=== PATIENT | female | born 1970 | race Caucasian/White ===

== ENCOUNTER 2016-07-28 10:27 | Emergency (ER) | payer MEDICAID, OTHER ==
[~2016-07-28] VITALS: Ht 160 cm; Wt 78.9 kg
[~2016-07-28 10:27] MED LIST: ACET500T98 PO; IBUP200C PO; IBUP800T25 PO; ONDA4TAB35 PO; OSLT75C PO
[2016-07-28 10:31] VITALS: Ht 160 cm; Wt 78.9 kg
[2016-07-28] MEDS ORDERED: TRAM50TA2 PO (11:55)
[2016-07-28] MEDS ORDERED: IBUP-1542 PO (11:55)
[2016-07-28] MEDS ORDERED: HYDROCODONE/APAP (5/325) TAB PO ONE (12:00)
--- NOTE | 2016-07-28 12:05 | ERD ---
ER Documentation Chief Complaint Date/Time DATE: 07/28/16 TIME: 11:58 Chief Complaint right breast pain with clear disc ahrge x 1 week HPI This 45-year-old female who presents the emergency department today complaining of right breast pain that radiates around to her back. She states she also has pain that goes across her chest and her left arm. States that she feels her arm muscle "pulsating". She has not taken any medication for the pain. States she went to her primary care doctor yesterday was given gabapentin. States that 2 weeks ago she had a mammogram and that she does not know the result however states she is scheduled for a biopsy this Wednesday. States that her breast pain started 1 week ago. Denies any fevers or chills. Denies breast- feeding. ROS All systems reviewed and are negative except as per history of present illness. Medications Home Meds Active Scripts Ibuprofen* (Motrin*) 600 Mg Tab, 600 MG PO Q6, #30 TAB Prov:GREGORIA WOOD PA-C 07/28/16 Tramadol HCl (Tramadol HCl) 50 Mg Tablet, 50 MG PO Q4 Y for PAIN, #20 TAB Prov:GREGORIA WOOD PA-C 07/28/16 Ondansetron Hcl* (Zofran* ODT) 4 mg -ODT Tab.disper, 4 MG PO DAILY Y for NAUSEA AND/OR VOMITING, #10 TAB 0 Refills Prov:VASU MARTINEZ PA-C 06/08/15 Ibuprofen* (Ibuprofen*) 200 Mg Capsule, 200 MG PO Q6, #30 CAP 0 Refills Prov:VASU MARTINEZ PA-C 06/08/15 Acetaminophen (Tylenol) 500 Mg Tab, 500 MG PO Q6, #30 TAB 0 Refills Prov:VASU MARTINEZ PA-C 06/08/15 Oseltamivir Phosphate* (Tamiflu*) 75 Mg Capsule, 75 MG PO BID, #10 CAP 0 Refills Prov:VASU MARTINEZ PA-C 06/08/15 Ibuprofen* (Motrin*) 800 Mg Tab, 800 MG PO Q6H Y for PAIN, #20 TAB Prov:ADOLFO CLARKE 10/20/14 Allergies Allergies: Coded Allergies: No Known Allergies (Verified Allergy, Mild, 06/08/15) PMhx/Soc History of Surgery: Yes (Thyroid surgery) Anesthesia Reaction: No Hx Neurological Disorder: No Hx Respiratory Disorders: No Hx Cardiac Disorders: No Hx Psychiatric Problems: No Hx Miscellaneous Medical Probl: No Hx Alcohol Use: No Hx Substance Use: No Hx Tobacco Use: No Physical Exam Vitals Vital Signs Date Time Temp Pulse Resp B/P Pulse Ox O2 Delivery O2 Flow Rate FiO2 07/28/16 10:31 98.1 80 20 150/89 99 Physical Exam Const: No acute distress Head: Atraumatic Eyes: Normal Conjunctiva ENT: Normal External Ears, Nose and Mouth. Neck: Full range of motion..~ No meningismus. Resp: Clear to auscultation bilaterally. No absent breath sounds. No wheezing. Cardio: Regular rate and rhythm, no murmurs Skin: No petechiae or rashes Back: No midline or flank tenderness Ext: No cyanosis, or edema. Left arm with full active range of motion. No erythema or warmth. No effusion. Pulses 2+. Neur: Awake and alert Psych: Normal Mood and Affect Results 24 hrs Current Medications Medications (Trade) Dose Ordered Sig/Angus Route PRN Reason Start Time Stop Time Status Last Admin Dose Admin Acetaminophen/ Hydrocodone Bitart (Morning View (5/325)) 1 tab ONCE ONCE PO 07/28/16 12:00 07/28/16 12:01 Procedures/MDM This 45-year-old female who presents the emergency department today complaining of right breast pain for the past week as well as left-sided arm pain. On physical exam patient does have evidence of a mass on the outer quadrant of her right breast. There is no erythema or warmth. There is no nipple discharge. There is no skin dimpling. Patient is not breast-feeding. Low suspicion for abscess, mastitis. Patient is already scheduled for a biopsy this week. I explained to the patient that this will be the best test to help figure out why she is having some breast pain. Do not feel the patient requires an ultrasound at this time patient understood. Patient indicates she was given gabapentin and that the breast pain radiated around to her back and at this time there is no evidence of shingles or herpes zoster. Patient is afebrile and otherwise well-appearing. Her oxygen saturations 99%. She is not tachycardic. She denies any shortness of breath. She has good pulses. Do not feel the patient requires a Doppler ultrasound to rule out DVT as I have low suspicion for this and low suspicion for PE. Patient does have full active range of motion of her arm and there is been no trauma. Do not feel the patient requires x-rays at this time. Low suspicion for acute fracture dislocation. Patient symptoms at this time was consistent with right breast pain and left arm pain. Patient was given Morning View here in the emergency department. She was instructed to follow-up with her biopsy as planned this week. I will give her a short course of tramadol as well as Motrin for home. She is instructed to return for any worsening of symptoms or shortness of breath. At this time the patient is stable for discharge and outpatient management. Patient should follow up with their PCP in the next 1-2 days. They may return to the emergency department sooner for any persistent or worsening of symptoms. Patient understood and agreed with the plan. Discussed the patient with Dr. Silva and he is in agreement with the plan. Departure Diagnosis: Primary Impression: Breast pain Additional Impression: Arm pain Laterality: left Qualified Code: M79.602 - Pain of left upper extremity Condition: Fair Patient Instructions: Pain Management, Breast Mass, Uncertain Cause Referrals: your PCP Additional Instructions: Call your primary care doctor TOMORROW for an appointment during the next 1-2 days.See the doctor sooner or return here if your condition worsens before your appointment time. Keep your appointment for your biopsy this week Take tramadol for severe pain otherwise take Naprosyn or Tylenol or Motrin GREGORIA WOOD PA-C Jul 28, 2016 12:05
== END 2016-07-28 12:20 | disposition home or self-care (01) ==
LOC: FTE 10:27
DX: N64.4 Mastodynia (principal); M79.602 Pain in left arm
CPT/HCPCS: 99283

== ENCOUNTER 2016-09-10 07:29 | Day surgery (SDC) | payer OTHER ==
[~2016-09-10] VITALS: Ht 175.3 cm; Wt 100.6 kg
[2016-09-10] VITALS (10 sets, daily range): BP systolic 112–140; BP diastolic 47–71; PULSE 71–92; RESP 13–20; Ht 175.3 cm; Wt 100.6 kg
[~2016-09-10 07:29] MED LIST changes: +IBUP-1542 PO; +TRAM50TA2 PO
[2016-09-10] MEDS ORDERED: CEFAZOLIN 2 GM/50 ML (PMX) 50 ML IVPB ONE (10:00)
[2016-09-10] MEDS ORDERED: SOD CHLORIDE 0.9% 1,000 ML IV SCH (10:00)
[2016-09-10] MEDS ORDERED: PROPOFOL 20 ML ONE (12:18)
[2016-09-10] MEDS ORDERED: LIDOCAINE 2% (SDV) 5 ML INJ ONE (12:18)
[2016-09-10] MEDS ORDERED: CEFAZOLIN 1 GM INJ ONE (12:19)
[2016-09-10] MEDS ORDERED: ONDANSETRON 4 MG INJ ONE (12:19)
[2016-09-10] MEDS ORDERED: METOCLOPRAMIDE 10 MG INJ ONE (12:19)
[2016-09-10] MEDS ORDERED: MEPERIDINE 100 MG INJ ONE (12:20)
[2016-09-10] MEDS ORDERED: ONDANSETRON 4 MG INJ IV PRN (12:30)
[2016-09-10] MEDS ORDERED: morphine (1 MG/ML) 10ML SYRINGE IV PRN ×2 (12:30)
[2016-09-10] MEDS ORDERED: MIDAZOLAM 1 MG/ML 2 ML INJ IV PRN (12:30)
[2016-09-10] MEDS ORDERED: MEPERIDINE 25 MG INJ IV PRN (12:30)
[2016-09-10] MEDS ORDERED: FENTAnyl 50 MCG/ML VIAL IV PRN ×2 (12:30)
[2016-09-10] MEDS ORDERED: METOCLOPRAMIDE 10 MG INJ IV PRN (12:30)
[2016-09-10] MEDS ORDERED: DIPHENHYDRAMINE 50 MG INJ IV PRN (12:30)
--- NOTE | 2016-09-10 14:01 | OPR ---
DATE OF OPERATION: 09/10/2016 PREOPERATIVE DIAGNOSIS: Ductal carcinoma in situ, right breast. POSTOPERATIVE DIAGNOSIS: Ductal carcinoma in situ, right breast, rule out invasion. PROCEDURE: Needle-directed right partial mastectomy. ANESTHESIA: General. ANESTHESIOLOGIST: Satinder Blas MD SURGEON: Dr. Gutierrez BAKERY WORKER: Dr. Cr INDICATIONS FOR PROCEDURE: The patient is a 45-year-old female who underwent surveillance mammograp hy and was found to have an approximately 5-cm span of microcalcifications in the right breast in th e upper outer quadrant. Core biopsy confirmed ductal carcinoma in situ. She was counseled as to th e need for a right partial mastectomy to rule out invasion. She consented and was scheduled for [facility]. DESCRIPTION OF PROCEDURE: On the morning of surgery the patient presented to [facility], where she underwent localization of the lesion performed by the attending ra diologist, Dr. Becca Cerna. Subsequently, she was brought to the operating theater and placed u nder general anesthesia. The right breast was prepped and draped in the usual sterile fashion. A c urvilinear incision was made in the upper outer quadrant of the right breast in the region of the pr eviously placed localization wire. The subcutaneous tissue was dissected with cautery. The skin ed ges were elevated and wide circumferential dissection of the tissue associated with the wire took pl fabrice, taking great care to ensure adequate margins. The specimen was elevated, transected, oriented, and sent for radiographic confirmation of capture. Capture was confirmed. The specimen was then s ent for permanent pathologic analysis. The wound was irrigated. Minimal bleeding was controlled wi th cautery. The skin was then reapproximated with a 4-0 Vicryl suture in subcuticular fashion and D ermabond was applied. The patient tolerated the procedure well. ESTIMATED BLOOD LOSS: 10 mL. COMPLICATIONS: There were no complications. DISPOSITION: The patient was transported in stable condition to the recovery room. Dictated By: MONTANA GUTIERREZ MD TL/GRABIEL Conf#: [id number] DID#: [id number]
[2016-09-10] MEDS ORDERED: EPHEDrine SULFATE 50 MG/5 ML SYG ONE (14:40)
== END 2016-09-10 14:50 | disposition home or self-care (01) ==
LOC: SDS 07:29
PROVIDERS: ATTEND Surgery Surgical Oncology
DX: D05.11 Intraductal carcinoma in situ of right breast (principal); E66.9 Obesity, unspecified; Z68.32 Body mass index [BMI] 32.0-32.9, adult
CPT/HCPCS: 19301; 84703; 88307; J0690; J2175; J2405; J2765; Z7512; Z7610; J1200

== ENCOUNTER 2016-11-30 08:47 | Day surgery (SDC) | payer OTHER ==
[~2016-11-30] VITALS: Ht 175.3 cm; Wt 101.4 kg
[2016-11-30] VITALS (16 sets, daily range): BP systolic 123–146; BP diastolic 52–82; PULSE 73–96; RESP 16–18; Ht 175.3 cm; Wt 101.4 kg
[~2016-11-30 08:47] MED LIST changes: -ACET500T98 PO; +CEFAZOLIN 2 GM/50 ML (PMX) 50 ML IVPB SCH; +DESFLURANE 15 MIN ONE; -IBUP-1542 PO; -IBUP200C PO; -IBUP800T25 PO; -ONDA4TAB35 PO; -OSLT75C PO; +SOD CHLORIDE 0.9% 1,000 ML IV SCH; -TRAM50TA2 PO
[2016-11-30 11:19] LABS: BASOPHILS % 0.6 % (0.0-2.0); EOSINOPHILS # 0.1 10^3/ul (0.0-0.5); EOSINOPHILS % 1.1 % (0.0-7.0); HEMATOCRIT 39.9 % (37.0-47.0); HEMOGLOBIN 13.6 g/dl (12.0-16.0); LYMPHOCYTES # 2.1 10^3/ul (0.8-2.9); LYMPHOCYTES % 29.9 % (15.0-51.0); MEAN CORPUSCULAR HEMOGLOBIN 30.2 pg (29.0-33.0); MEAN CORPUSCULAR HGB CONC 34.1 g/dl (32.0-37.0); MEAN CORPUSCULAR VOLUME 88.5 fl (82.0-101.0); MEAN PLATELET VOLUME 11.3 fl (7.4-10.4); MONOCYTE # 0.4 10^3/ul (0.3-0.9); MONOCYTES % 5.5 % (0.0-11.0); NEUTROPHIL # 4.4 10^3/ul (1.6-7.5); NEUTROPHILS % 62.5 % (39.0-77.0); PLATELET COUNT 309 10^3/UL (140-415); RED BLOOD COUNT 4.51 10^6/ul (4.20-5.40); RED CELL DISTRIBUTION WIDTH 12.8 % (11.5-14.5); WHITE BLOOD COUNT 7.1 10^3/ul (4.8-10.8)
[2016-11-30] MEDS ORDERED: METOCLOPRAMIDE 10 MG INJ ONE (11:20)
[2016-11-30] MEDS ORDERED: MIDAZOLAM 1 MG/ML 2 ML INJ ONE (11:20)
[2016-11-30] MEDS ORDERED: FENTAnyl 50 MCG/ML VIAL ONE ×2 (11:22→11:35)
[2016-11-30] MEDS ORDERED: PROPOFOL 20 ML ONE (11:22)
[2016-11-30] MEDS ORDERED: CEFAZOLIN 1 GM INJ ONE ×2 (11:22→11:28)
[2016-11-30 11:25] LABS: INR 0.98
[2016-11-30 11:26] LABS: PARTIAL THROMBOPLASTIN TIME 31.4 Sec (25.0-35.0)
[2016-11-30 11:37] LABS: ALBUMIN/GLOBULIN RATIO 1.2
[2016-11-30] MEDS ORDERED: EPHEDrine SULFATE 50 MG/5 ML SYG ONE (11:40)
[2016-11-30 11:43] LABS: ALBUMIN 4.2 g/dl (3.3-4.9); BILIRUBIN,INDIRECT 0.2 mg/dl (0-1.1); BILIRUBIN,TOTAL 0.2 mg/dl (0.2-1.3); CALCIUM 9.2 mg/dl (8.4-10.2); CREATININE 0.64 mg/dl (0.44-1.00); POTASSIUM 3.9 mmol/L (3.5-5.1); TOTAL PROTEIN 7.7 g/dl (6.1-8.1)
[2016-11-30] MEDS ORDERED: MEPERIDINE 25 MG INJ IV PRN (12:00)
[2016-11-30] MEDS ORDERED: ONDANSETRON 4 MG INJ IV PRN (12:00)
[2016-11-30] MEDS ORDERED: OXYCODONE/ACETAMINOPHEN (5/325) TAB PO PRN ×2 (12:00)
[2016-11-30] MEDS ORDERED: METOCLOPRAMIDE 10 MG INJ IV PRN (12:00)
[2016-11-30] MEDS ORDERED: HYDROmorphONE (0.2 MG/ML) 10ML SYG IV PRN ×3 (12:00)
[2016-11-30] MEDS ORDERED: DIPHENHYDRAMINE 50 MG INJ IV PRN (12:00)
--- NOTE | 2016-11-30 12:14 | OPR ---
Date/Time of Note Date/Time of Note DATE: 11/30/16 TIME: 12:13 Operative Report Preoperative Diagnosis DCIS right breast need for reexcision partial mastectomy Postoperative Diagnosis Same Operation/Procedure Performed Right reexcision partial mastectomy pastry assistant: JOE LIRA MD Anesthesia: general Estimated Blood Loss: 0 - 10 ml's Complications: None MONTANA CONCEPCION MD Nov 30, 2016 12:14
[2016-11-30] MEDS ORDERED: HYDROCODONE/APAP (7.5/325) TAB PO PRN (12:30)
--- NOTE | 2016-11-30 14:17 | OPR ---
DATE OF OPERATION: 11/30/2016 PREOPERATIVE DIAGNOSIS: Ductal carcinoma in situ, right breast. Need for right re-excision partial mastectomy. POSTOPERATIVE DIAGNOSIS: Ductal carcinoma in situ, right breast. Need for right re-excision partial mastectomy. OPERATION PERFORMED: Right re-excision partial mastectomy. ANESTHESIA: General. ANESTHESIOLOGIST: Dr. Rodriguez. SURGEON: Dr. Gutierrez WEIGHER AND CRUSHER: Dr. Panda Cr. INDICATIONS FOR PROCEDURE: Patient is a 45-year-old female, who underwent screening mammography and was found to have suspicious lesion in her right breast. Subsequent workup including an excisional biopsy revealed approximately 4.5 cm span of ductal carcinoma in situ with insufficient medial and superior margin. The patient was counseled as to the need for re-excision partial mastectomy. She consented and was scheduled for surgery. OPERATIVE PROCEDURE: Patient was brought to the operating theater, placed under general anesthesia. The right breast was prepped and draped in usual sterile fashion. Previous surgical incisional scar, which was located in the upper outer quadrant, was reincised with a 15 blade scalpel. Subcutaneous tissue was dissected with cautery. The skin edges were then elevated with skin hooks and wide circumferential dissection of the previous biopsy cavity took place in 360 degree fashion. The specimen was elevated, transected, oriented and sent for permanent pathologic analysis. The wound was irrigated. Minimal bleeding was controlled with cautery. The skin incision was then closed with 4-0 Vicryl suture in subcuticular fashion. Dermabond was applied. The patient tolerated the procedure well. ESTIMATED BLOOD LOSS: Was 10 cc. COMPLICATIONS: There were no complications. DISPOSITION: The patient was transported in stable condition to recovery room. Dictated By: Mike Gutierrez MD /veronica/neol /Document#: [id number] HERBERT
== END 2016-11-30 14:50 | disposition home or self-care (01) ==
LOC: SDS 08:47
PROVIDERS: ATTEND Surgery Surgical Oncology
DX: D05.11 Intraductal carcinoma in situ of right breast (principal); E66.9 Obesity, unspecified; Z68.33 Body mass index [BMI] 33.0-33.9, adult
CPT/HCPCS: 19301; 80053; 84703; 85025; 85610; 85730; 88307; J0690; J1170; J2250; J2405; J2765; J3010; Z7512; Z7610

== ENCOUNTER 2018-03-02 23:18 | Inpatient (IN) | END 2018-03-06 11:46 | disposition home or self-care (01) | DRG 419 ==

== ENCOUNTER 2018-08-19 16:37 | Emergency (ER) | payer OTHER ==
[~2018-08-19] VITALS: Wt 91.0 kg
[~2018-08-19 16:37] MED LIST changes: -CEFAZOLIN 2 GM/50 ML (PMX) 50 ML IVPB SCH; +CIPR500T4 PO; -DESFLURANE 15 MIN ONE; +HYDR-3601 PO; +METR500T PO; +NOL20 PO; +OMEP40CA6 PO; -SOD CHLORIDE 0.9% 1,000 ML IV SCH
[2018-08-19 16:42] VITALS: BP 160/75
[2018-08-19] MEDS ORDERED: ONDANSETRON 4 MG INJ IV STA (17:49)
[2018-08-19] MEDS ORDERED: KETOROLAC 15 MG INJ IV STA (17:49)
[2018-08-19] MEDS ORDERED: SOD CHLORIDE 0.9% 1,000 ML IV STA (17:49)
[2018-08-19] MEDS ORDERED: ONDA4TAB14 PO (20:12)
[2018-08-19] MEDS ORDERED: BISM-34 PO (20:12)
[2018-08-19 20:35] VITALS: PULSE 71; RESP 20
--- NOTE | 2018-08-20 01:56 | ERD ---
ER Documentation Chief Complaint Chief Complaint DIARRHEA AND VOMITING FOR THE PAST FEW DAYS. NO ABD PAIN OR SIGNS OF SOB HPI 47-year-old female presenting to the emergency department complaining of intermittent vomiting for the past 3 weeks. She states symptoms occur daily before bedtime after eating dinner. She reports one episode per day. She also reports some mid epigastric abdominal pain. Pain is currently rated 8/10 sev erity. She has been taking omeprazole at home with some relief. She denies any other symptoms at this time. ROS All systems reviewed and are negative except as per history of present illness. Medications Home Meds Active Scripts Bismuth Subsalicylate* (Bismuth Subsalicylate*) 262 Mg/15 Ml Oral.susp, 15 ML PO Q6 PRN for DIARRHEA, #250 ML Prov:FELICITA FAJARDO PA-C 08/19/18 Ondansetron (Ondansetron Odt) 4 Mg Tab.rapdis, 4 MG PO Q6H PRN for NAUSEA AND/OR VOMITING, #10 TAB Prov:FELICITA FAJARDO PA-C 08/19/18 Metronidazole* (Flagyl*) 500 Mg Tablet, 500 MG PO TID for 7 Days, #21 TAB Prov:MADELIN SPAULDING S. 05/26/18 Ciprofloxacin Hcl* (Ciprofloxacin Hcl*) 500 Mg Tablet, 500 MG PO BID for 7 Days, #14 TAB Prov:MADELIN SPAULDING S. 05/26/18 Hydrocodone Bit-Acetaminophen (Hydrocodone Bit-APAP) 5-325MG Tablet, 1 TAB PO Q6H PRN for .MOD PAIN 4-6, #14 TAB Prov:MADELIN SPAULDING S. 05/26/18 Reported Medications Omeprazole* (Omeprazole*) 40 Mg Capsule.dr, 40 MG PO DAILY, #30 CAP 03/02/18 Tamoxifen Citrate* (Tamoxifen Citrate*) 20 Mg Tab, 20 MG PO DAILY, TAB 03/02/18 Allergies Allergies: Coded Allergies: No Known Allergies (Unverified Allergy, Mild, 05/25/18) PMhx/Soc History of Surgery: Yes (lap mary,partial R Mastectomy, Thyroid sx) Anesthesia Reaction: No Hx Neurological Disorder: Yes (occassional numbness in fingers) Hx Respiratory Disorders: No Hx Cardiac Disorders: No Hx Psychiatric Problems: Yes (Depression) Hx Miscellaneous Medical Probl: No Hx Alcohol Use: No Hx Substance Use: No Hx Tobacco Use: No Smoking Status: Never smoker FmHx Family History: No diabetes Physical Exam Vitals Vital Signs Date Temp Pulse Resp B/P (MAP) Pulse Ox O2 O2 Flow FiO2 Time Delivery Rate 08/19/18 98.1 71 20 97 Room Air 20:35 08/19/18 99.1 84 20 160/75 98 16:42 (103) Physical Exam Const: No acute distress Head: Atraumatic Eyes: Normal Conjunctiva ENT: Normal External Ears, Nose and Mouth. Neck: Full range of motion. No meningismus. Resp: Clear to auscultation bilaterally Cardio: Regular rate and rhythm, no murmurs Abd: Soft, non distended. Normal bowel sounds. Diffuse abdominal tenderness to palpation, no rebound tenderness or guarding, no McBurney's point tenderness Skin: No petechiae or rashes Back: No midline or flank tenderness Ext: No cyanosis, or edema Neur: Awake and alert Psych: Normal Mood and Affect Result Diagram: 08/19/18 1802 08/19/18 1802 Results 24 hrs Laboratory Tests Test 08/19/18 18:02 White Blood Count 8.6 10^3/ul Red Blood Count 4.44 10^6/ul Hemoglobin 13.0 g/dl Hematocrit 39.5 % Mean Corpuscular Volume 89.0 fl Mean Corpuscular Hemoglobin 29.3 pg Mean Corpuscular Hemoglobin Concent 32.9 g/dl Red Cell Distribution Width 13.2 % Platelet Count 257 10^3/UL Mean Platelet Volume 10.9 fl Immature Granulocytes % 0.400 % Neutrophils % 55.6 % Lymphocytes % 33.5 % Monocytes % 7.9 % Eosinophils % 2.1 % Basophils % 0.5 % Nucleated Red Blood Cells % 0.0 /100WBC Immature Granulocytes # 0.030 10^3/ul Neutrophils # 4.8 10^3/ul Lymphocytes # 2.9 10^3/ul Monocytes # 0.7 10^3/ul Eosinophils # 0.2 10^3/ul Basophils # 0.0 10^3/ul Nucleated Red Blood Cells # 0.0 10^3/ul Prothrombin Time 12.3 Sec Prothrombin Time Ratio 1.0 INR International Normalized Ratio 0.90 Activated Partial Thromboplast Time 26.9 Sec Urine Color YELLOW Urine Clarity SLIGHTLY CLOUDY Urine pH 6.0 Urine Specific [place] 1.016 Urine Ketones NEGATIVE mg/dL Urine Nitrite NEGATIVE mg/dL Urine Bilirubin NEGATIVE mg/dL Urine Urobilinogen NEGATIVE mg/dL Urine Leukocyte Esterase TRACE Kendal/ul Urine Microscopic RBC 2 /HPF Urine Microscopic WBC 1 /HPF Urine Squamous Epithelial Cells FEW /HPF Urine Bacteria FEW /HPF Urine Hemoglobin 1+ mg/dL Urine Glucose NEGATIVE mg/dL Urine Total Protein NEGATIVE mg/dl Sodium Level 146 mmol/L Potassium Level 3.6 mmol/L Chloride Level 110 mmol/L Carbon Dioxide Level 25 mmol/L Anion Gap 11 Blood Urea Nitrogen 15 mg/dl Creatinine 0.85 mg/dl Est Glomerular Filtrat Rate mL/min > 60 mL/min Glucose Level 93 mg/dl Calcium Level 9.8 mg/dl Total Bilirubin 0.0 mg/dl Direct Bilirubin 0.00 mg/dl Indirect Bilirubin 0.0 mg/dl Aspartate Amino Transf (AST/SGOT) 45 IU/L Alanine Aminotransferase (ALT/SGPT) 38 IU/L Alkaline Phosphatase 66 IU/L Total Protein 7.9 g/dl Albumin 4.3 g/dl Globulin 3.60 g/dl Albumin/Globulin Ratio 1.19 Lipase 105 U/L Current Medications Medications Dose Sig/Angus Start Time Status Last (Trade) Ordered Route PRN Stop Time Admin Dose Reason Admin Sodium 1,000 ml @ Q1H STAT 08/19/18 DC 08/19/18 Chloride 1,000 mls/hr IV 17:49 18:00 08/19/18 18:48 Ondansetron 4 mg ONCE STAT 08/19/18 DC 08/19/18 HCl (Zofran IV 17:49 17:59 Inj) 08/19/18 17:50 Ketorolac 15 mg ONCE STAT 08/19/18 DC 08/19/18 Tromethamine IV 17:49 17:59 (Toradol) 08/19/18 17:50 [place] [id number] Radiology Main Line: [phone] DIAGNOSTIC IMAGING REPORT Patient: FABIANA QUINONES : 1970 Age: 47 Sex: F MR #: [id number] DOS: 08/19/18 [id number] Ordering MD: FELICITA FAJARDO PA-C Location: [facility] Room/Bed: PROCEDURE: CT Abdomen and Pelvis without contrast. CLINICAL INDICATION: Abdominal pain. TECHNIQUE: CT scan of the abdomen and pelvis was performed on a multi-detector high-resolution CT scanner. The patient was scanned without contrast administration. Coronal and sagittal reformatted images were obtained from the axial source images. Images were reviewed on a high-resolution PACS workstation. The total exam CTDI equals 22 mGy and the total exam DLP equals 1343 mGy-cm. DICOM images are available. 3-D reconstructions were not performed. One or more of the following dose reduction techniques were utilized: 1.) Automated exposure control 2.) Adjustment of the mA +/- kV according to patient's size 3.) Use of iterative reconstruction technique. COMPARISON: 05/25/2018 FINDINGS: CT abdomen: Heart (where visible): Unremarkable. Lung bases: No evidence of pneumonia, mass, pleural effusion. Liver: Enlarged, measuring 20.0 cm in length with diffusely diminished parenchymal attenuation. No visible focal mass. Biliary ductal system: No evidence of significant dilatation. Gallbladder: Surgically absent. Pancreas: Unremarkable. Stomach: No identifiable focal mass or gross wall thickening. Spleen: No gross splenomegaly. Abdominal colon: Normal in caliber and course. Diffuse diverticular disease without inflammatory change. Abdominal small bowel: Normal in caliber, course, and mucosal pattern. Adrenal glands: No visible masses. Right Kidney: Normal in size and contour without focal mass or collecting system dilatation. No visible calcifications. Left kidney: Normal in size and contour without focal mass or collecting system dilatation. No visible calcifications. Abdominal aorta: Normal caliber. Lymph nodes: No significantly enlarged nodes. CT pelvis: Pelvic colon: There is a very high sigmoid loop. Numerous diverticula are p resent. No evidence of inflammatory change. Pelvic small bowel: Normal in caliber and course. Appendix: Identified. No evidence of inflammation. Urinary bladder: Normal in size and contour without visible wall thickening. Reproductive structures: The uterus is prominently enlarged and lobulated secondary to leiomyomata with a probable dominant fundal myoma measuring as much as 8.5 cm in diameter. The uterus overall measures 15.6 x 10.1 x 12.7 cm. Small cystic structures are present in the region of the right adnexa. The left ovary appear small. There is no free fluid in the pelvis. Bony structures included in the scan: No clinically significant abnormalities. IMPRESSION: 1. Enlarged leiomyomatous uterus. 2. Diffuse colonic diverticulosis without current CT evidence of divertic ulitis. 3. Hepatomegaly and diffuse hepatic steatosis. 4. Surgical absence of the gallbladder. RPTAT:AAJJ Physician Brandon Date Time Electronically viewed and signed by Michelle Anthony Physician on 08/19/2018 20:08 GW/ CC: FELICITA FAJARDO PA-C [id number] Procedures/MDM 47-year-old female presenting to the emergency department complaining of intermittent nausea, vomiting, and diarrhea as well as abdominal pain. The patient did have diffuse abdominal tenderness on examination and so laboratory studies and imaging studies were ordered. CT abdomen and pelvis without contrast showed no significant acute abnormalities. The full report interpreted CBC: no e/o of systemic infection or severe anemia CMP: no e/o severe acidosis, alkalosis, renal failure, diabetic ketoacidosis, liver disease Lipase: no e/o pancreatitis PT/INR: normal coagulation Urine: no e/o acute infection or hematuria patient's gastrointestinal symptoms have stabilized while in the department. No evidence of severe dehydration, sepsis, or surgical abdomen. Extensive discussion with family and patient that occult disease cannot be ruled out. 8 hour recheck for repeat abdominal exam is planned. By the radiologist may be viewed above. The patient was administered IV fluids, IV Toradol, IV Zofran in the department good response. She was significantly improved on reevaluation. Patient's blood pressure was elevated (>120/80) but appears stable without evidence of hypertension emergency or urgency. The patient is to follow-up and pursue outpatient monitoring and therapy with their primary care physician within 1 week and return immediately if they have any new, worsening, or concerning symptoms. Departure Diagnosis: Primary Impression: Nausea vomiting and diarrhea Condition: Fair Patient Instructions: Nausea and Vomiting-Adult, Diet, Vomiting Or Diarrhea [6Yr-Adult] Referrals: COMMUNITY CLINICS YOU HAVE RECEIVED A MEDICAL SCREENING EXAM AND THE RESULTS INDICATE THAT YOU DO NOT HAVE A CONDITION THAT REQUIRES URGENT TREATMENT IN THE EMERGENCY DEPARTMENT. FURTHER EVALUATION AND TREATMENT OF YOUR CONDITION CAN WAIT UNTIL YOU ARE SEEN IN YOUR DOCTORS OFFICE WITHIN THE NEXT 1-2 DAYS. IT IS YOUR RESPONSIBILITY TO MAKE AN APPOINTMENT FOR FOLOW-UP CARE. IF YOU HAVE A PRIMARY DOCTOR --you should call your primary doctor and schedule an appointment IF YOU DO NOT HAVE A PRIMARY DOCTOR YOU CAN CALL OUR PHYSICIAN REFERRAL HOTLINE AT IF YOU CAN NOT AFFORD TO SEE A PHYSICIAN YOU CAN CHOSE FROM THE FOLLOWING [facility] CL[facility] [address]. [facility] [address] [facility] [facility] [facility] [address] [facility]. [facility] [address] [facility]. [facility] [address] [facility]. [facility]. [address] Additional Instructions: Call your primary care doctor TOMORROW for an appointment during the next 1-2 days.See the doctor sooner or return here if your condition worsens before your appointment time. FELICITA FAJARDO PA-C Aug 20, 2018 01:56
== END 2018-08-19 20:30 | disposition home or self-care (01) ==
LOC: FTE 16:37
DX: R11.2 Nausea with vomiting, unspecified (principal); R10.84 Generalized abdominal pain
CPT/HCPCS: 36415; 74176; 80053; 81001; 83690; 85025; 85610; 85730; 96374; 96375; J1885; J2405; J7030; Z7502